=== PATIENT | female | born 1980 ===

== ENCOUNTER 2017-11-08 14:15 | Emergency (ER) | payer OTHER ==
[~2017-11-08] VITALS: Ht 160 cm; Wt 78.9 kg
[2017-11-09] MEDS ORDERED: LEVSIN/SL0.125 MG PO (01:41)
[2017-11-09] MEDS ORDERED: KETO10TA2 PO (01:41)
[2017-11-09] MEDS ORDERED: PEPCID AC20 MG PO (01:41)
== END 2017-11-09 01:49 | disposition home or self-care (01) ==
LOC: ER 14:15
DX: K80.20 Calculus of gallbladder without cholecystitis without obstruction (principal)

== ENCOUNTER 2020-12-05 18:49 | Outpatient (CLI) | payer OTHER ==
[~2020-12-05 18:49] MED LIST: KETO10TA2 PO; LEVSIN/SL0.125 MG PO; PEPCID AC20 MG PO
== END 2020-12-05 23:00 | disposition home or self-care (01) ==
LOC: LAB 18:49
PROVIDERS: ATTEND Obstetrics & Gynecology
DX: Z20.818 Contact with and (suspected) exposure to other bacterial communicable diseases (principal); Z20.828 Contact with and (suspected) exposure to other viral communicable diseases